=== PATIENT | male | born 1975 | race American Indian/Alaskan Native ===

== ENCOUNTER 2020-08-28 19:44 | Emergency (ER) | payer SELFPAY ==
[2020-08-28] MEDS ORDERED: ACETAMINOPHEN 325 MG TAB PO ONE (22:28)
--- NOTE | 2020-08-28 23:31 | XRay Report ---
XR chest routine 2V INDICATION / CLINICAL INFORMATION: cough, fever COMPARISON: None available. FINDINGS: SUPPORT DEVICES: None. HEART / MEDIASTINUM: No significant abnormality. LUNGS / PLEURA: Lungs are clear. Costophrenic sulci are sharp. No pneumothorax. ADDITIONAL FINDINGS: No significant additional findings. IMPRESSION: 1. No acute findings. Signer Name: Jerson Rucker MD Signed: 08/28/2020 11:27 PM Workstation Name: [id number]
--- NOTE | 2020-08-28 23:50 | Emergency Department Report ---
- General Chief Complaint: Weakness Stated Complaint: JOINT PAIN/WEAKNESS/FEVER Time Seen by Provider: 08/28/20 22:17 Source: patient Mode of arrival: Ambulatory Limitations: No Limitations - History of Present Illness Initial Comments: Patient is a 45-year-old male presents emergency room complaints of URI symptoms that began 3 to 4 days ago. He has associated generalized body aches, dry cough, fever, generalized weakness, fatigue. He denies any known sick contacts but states that [place] He denies any recent travel. He denies any nausea, vomiting, diarrhea, chest pain, shortness of breath, abdominal pain. No past medical history. No allergies medications. - Related Data Previous Rx's Medication Instructions Recorded Last Taken Type Benzonatate [Tessalon Perles] 100 mg PO Q8HR PRN #12 capsule 08/28/20 Unknown Rx Fluticasone [Flonase] 1 spray NS QDAY #1 bottle 08/28/20 Unknown Rx guaiFENesin ER [Mucinex ER] 600 mg PO Q12H #14 tablet.er 08/28/20 Unknown Rx Allergies Allergy/AdvReac Type Severity Reaction Status Date / Time No Known Allergies Allergy Unverified 03/13/15 14:33 ED Review of Systems ROS: Stated complaint: JOINT PAIN/WEAKNESS/FEVER Other details as noted in HPI Comment: All other systems reviewed and negative ED Past Medical Hx - Past Medical History Previous Medical History?: No - Surgical History Past Surgical History?: No - Social History Smoking Status: Never Smoker - Medications Home Medications: Home Medications Medication Instructions Recorded Confirmed Last Taken Type Benzonatate [Tessalon Perles] 100 mg PO Q8HR PRN #12 capsule 08/28/20 Unknown Rx Fluticasone [Flonase] 1 spray NS QDAY #1 bottle 08/28/20 Unknown Rx guaiFENesin ER [Mucinex ER] 600 mg PO Q12H #14 tablet.er 08/28/20 Unknown Rx ED Physical Exam - General Limitations: No Limitations General appearance: alert, in no apparent distress - Head Head exam: Present: atraumatic, normocephalic - Eye Eye exam: Present: normal appearance - ENT ENT exam: Present: normal orophraynx, mucous membranes moist, TM's normal bilaterally, normal external ear exam - Respiratory Respiratory exam: Present: normal lung sounds bilaterally. Absent: respiratory distress, wheezes, rales, rhonchi, stridor, chest wall tenderness, accessory muscle use, decreased breath sounds, prolonged expiratory - Cardiovascular Cardiovascular Exam: Present: regular rate, normal rhythm, normal heart sounds. Absent: systolic murmur, diastolic murmur, rubs, gallop - Neurological Exam Neurological exam: Present: alert, oriented X3 - Psychiatric Psychiatric exam: Present: normal affect, normal mood - Skin Skin exam: Present: warm, dry, intact ED Course Vital Signs 08/28/20 08/29/20 21:44 01:40 Temperature 100.7 F H 99.8 F H Pulse Rate 108 H 92 H Respiratory 18 17 Rate Blood Pressure 133/90 Blood Pressure 110/65 [Left] O2 Sat by Pulse 97 97 Oximetry ED Medical Decision Making - Lab Data Vital Signs 08/28/20 08/29/20 21:44 01:40 Temperature 100.7 F H 99.8 F H Pulse Rate 108 H 92 H Respiratory 18 17 Rate Blood Pressure 133/90 Blood Pressure 110/65 [Left] O2 Sat by Pulse 97 97 Oximetry - Radiology Data Radiology results: report reviewed Ordering Physician: LOLI MADDOX Date of Service: 08/28/20 Procedure(s): XR chest routine 2V Accession Number(s): [id number] cc: LOLI MADDOX Fluoro Time In Minutes: XR chest routine 2V INDICATION / CLINICAL INFORMATION: cough, fever COMPARISON: None available. FINDINGS: SUPPORT DEVICES: None. HEART / MEDIASTINUM: No significant abnormality. LUNGS / PLEURA: Lungs are clear. Costophrenic sulci are sharp. No pneumothorax. ADDITIONAL FINDINGS: No significant additional findings. IMPRESSION: 1. No acute findings. Signer Name: Jerson Rucker MD Signed: 08/28/2020 11:27 PM Workstation Name: [id number] Transcribed By: CS Dictated By: Jerson Rucker MD Electronically Authenticated By: Jerson Rucker MD Signed Date/Time: 08/28/202326 DD/ 26 TD/TT: - Medical Decision Making Patient is a 45-year-old male presents emergency room complaints of URI symptoms that began 3 to 4 days ago. He has associated generalized body aches, dry cough, fever, generalized weakness, fatigue. He denies any known sick contacts but states that he [place]. He denies any recent travel. He denies any nausea, vomiting, diarrhea, chest pain, shortness of breath, abdominal pain. No past medical history. No allergies medications. Initial vitals with fever and mild tachycardia, improved upon Tylenol administration. Breath sounds are clear bilaterally, no wheezing, no rales, no rhonchi, normal oropharynx, normal TMs and canals. Chest x-ray: 1. No acute findings. Symptoms likely related to viral URI. Patient presenting with the symptoms during COVID-19 pandemic, discussed COVID-19 with patient, discuss strict return precautions, discussed outpatient testing, discussed to self quarantine as necessary. Patient has no signs of severe Covid, no hypoxia, chest x-ray is within normal limits. Patient given prescription for symptomatic relief. Advised patient Please take medication as prescribed as needed. Increase your fluid intake. May alternate Tylenol and then ibuprofen as needed for fever. May use a humidifier. Follow-up with your primary care doctor for reexamination. Recommend for you to get outpatient COVID-19 testing and quarantine as necessary. Return to emergency room for any new or worsening symptoms. Critical care attestation.: If time is entered above; I have spent that time in minutes in the direct care of this critically ill patient, excluding procedure time. ED Disposition Clinical Impression: Viral URI Disposition: DC-01 TO HOME OR SELFCARE Is pt being admited?: No Does the pt Need Aspirin: No Condition: Stable Instructions: Viral Respiratory Infection Additional Instructions: Please take medication as prescribed as needed. Increase your fluid intake. May alternate Tylenol and then ibuprofen as needed for fever. May use a humidifier. Follow-up with your primary care doctor for reexamination. Recommend for you to get outpatient COVID-19 testing and quarantine as necessary. Return to emergency room for any new or worsening symptoms. Prescriptions: Fluticasone [Flonase] 1 spray NS QDAY #1 bottle guaiFENesin ER [Mucinex ER] 600 mg PO Q12H #14 tablet.er Benzonatate [Tessalon Perles] 100 mg PO Q8HR PRN #12 capsule PRN Reason: cough Referrals: your, primary care doctor [Other] - 3-5 Days Time of Disposition: 23:48 Print Language: NEPALI
[2020-08-29 01:41] VITALS: BP 110/65
== END 2020-08-29 00:25 | disposition home or self-care (01) ==
LOC: ED 19:44
DX: J06.9 Acute upper respiratory infection, unspecified (principal); B97.89 Other viral agents as the cause of diseases classified elsewhere; Z79.899 Other long term (current) drug therapy
CPT/HCPCS: 71046; 99283